=== PATIENT | female | born 1960 | race Caucasian/White ===

== ENCOUNTER 2016-08-03 11:36 | Emergency (ER) | payer OTHER ==
[2016-08-03 11:50] VITALS: BP 139/70
--- NOTE | 2016-08-03 12:33 | UC ---
FLU HPI - HPI Summary HPI Summary: ONSET OF SUBJECTIVE FEVER, CHILLS, BODY ACHES, SALVADOR, COUGH AND CONGESTION LAST NIGHT. DID NOT GET A FLU SHOT THIS SEASON. LAST DOSE IBUPROFEN 11AM (90 MIN AGO) . - History of Current Complaint Chief Complaint: UCRespiratory Stated Complaint: FEVER Time Seen by Provider: 08/03/16 12:26 Hx Obtained From: Patient Onset/Duration: Gradual Onset, Lasting Hours, Still Present Severity Currently: Moderate Severity Initially: Moderate Pain Intensity: 0 Pain Scale Used: 0-10 Numeric Associated Signs & Symptoms: Positive: Fever, Myalgia, Cough, Sore Throat, Nasal Congestion, Headache - Allergy/Home Medications Allergies/Adverse Reactions: Allergies Allergy/AdvReac Type Severity Reaction Status Date / Time Penicillins Allergy Severe Rash Verified 08/03/16 11:50 Hydromorphone [From Dilaudid] AdvReac Intermediate See Comment Verified 11:50 Home Medications: Home Medications Albuterol Sulfate [Proventil Hfa] 108 mcg IN 08/03/16 [History] Alendronate Sodium [Fosamax-] 70 mg PO WEEKLY 08/03/16 [History Confirmed ] Bupropion HCl [Wellbutrin Sr] 200 mg PO 08/03/16 [History] Dexlansoprazole (NF) [Dexilant (NF)] 60 mg PO DAILY 08/03/16 [History Confirmed 08/03/16] Fluticasone-Salmeterol 100-50* [Advair Diskus 100-50*] 1 puff INH BID 08/03/16 [ History Confirmed 08/03/16] Hydroxychloroquine TAB* [Plaquenil TAB*] 200 mg PO DAILY 08/03/16 [History Confirmed 08/03/16] Levothyroxine Sodium [Synthroid] 25 mcg PO 08/03/16 [History] Lisinopril [Zestril 10 MG-] 10 mg PO DAILY 08/03/16 [History Confirmed 08/03/16] Nabumetone TAB* [Relafen TAB*] 500 mg PO BID 08/03/16 [History Confirmed ] Rosuvastatin Calcium 10 mg PO 08/03/16 [History] Sertraline* [Zoloft*] 100 mg PO DAILY 08/03/16 [History Confirmed 08/03/16] metFORMIN* [Glucophage*] 08/03/16 [History] metFORMIN* [Glucophage*] 500 mg PO BID 08/03/16 [History Confirmed 08/03/16] predniSONE TAB* [Deltasone TAB*] 5 mg PO DAILY 08/03/16 [History Confirmed 08/03] PMH/Surg Hx/FS Hx/Imm Hx Endocrine History Of: Reports: Diabetes - type 2, Thyroid Disease, Hypothyroidism, Dyslipidemia Cardiovascular History Of: Reports: Hypertension Denies: Pacemaker/ICD Respiratory History Of: Reports: Asthma - USES INHALER; allergy related GI/ History Of: Denies: Renal Disease Psychological History Of: Reports: Depression - Surgical History Surgical History: Yes Surgery Procedure, Year, and Place: RIGHT FOOT SURGERY 2007. HYSTERECTOMY 1997 , GALLBLADDER REMOVED 1995. BILATERAL SHOULDER ROTATOR CUFF REPAIR. LEFT KNEE REPLACEMENT 2004 - Family History Known Family History: Positive: Hypertension, Other - CHOLESTEROL - Social History Alcohol Use: Rare Substance Use Type: None Smoking Status (MU): Never Smoked Tobacco Review of Systems Constitutional: Fever, Chills, Fatigue ENT: Sore Throat, Nasal Discharge Respiratory: Cough Cardiovascular: Negative Gastrointestinal: Negative Musculoskeletal: Myalgia Neurological: Headache All Other Systems Reviewed And Are Negative: Yes Physical Exam Triage Information Reviewed: Yes Appearance: No Pain Distress, Well-Nourished, Ill-Appearing - MILDLY ILL APPEARING Vital Signs: Initial Vital Signs Temp 97.2 F 08/03/16 11:46 Pulse 114 08/03/16 11:46 Resp 20 08/03/16 11:46 BP 139/70 08/03/16 11:46 Pulse Ox 96 08/03/16 11:46 Vital Signs Reviewed: Yes Eyes: Positive: Conjunctiva Clear ENT: Positive: Hearing grossly normal, Pharynx normal, TMs normal Neck: Positive: Supple, Nontender, No Lymphadenopathy Respiratory Exam: Normal Cardiovascular: Positive: Tachycardia Abdomen Description: Positive: Soft Musculoskeletal: Positive: No Edema Neurological: Positive: Alert Psychological: Positive: Age Appropriate Behavior Skin: Negative: rashes Diagnostics - Laboratory Diagnostic Studies Completed/Ordered: RAPID FLU POSITIVE - FLU A Flu Course/Dx - Differential Dx/Diagnosis Provider Diagnoses: INFLUENZA A Discharge - Discharge Plan Condition: Stable Disposition: HOME Prescriptions: Oseltamivir Phosphate [Tamiflu] 75 mg PO BID #10 cap guaiFENesin/CODIEN 100MG-10MG* [Robitussin AC 100Mg-10Mg*] 5 - 10 ml PO Q6H PRN #150 ml MDD 40 ML PRN Reason: Cough Patient Education Materials: Influenza (ED) Referrals: No Primary Care Phys,NOPCP [Primary Care Provider] - Additional Instructions: SWAB POSITIVE FLU A. TAMIFLU TWICE DAILY X 5 DAYS. REST, HYDRATE, OTC MEDS NEEDED FOR ACHES AND FEVER. SEEK FOLLOW-UP HERE OR WITH YOUR PCP BACK HOME IN [place] IF NOT IMPROVING EXPECTED.
== END 2016-08-03 12:53 | disposition home or self-care (01) ==
LOC: UCEAST 11:36
DX: J09.X2 Influenza due to identified novel influenza A virus with other respiratory manifestations (principal); E11.9 Type 2 diabetes mellitus without complications; Z79.84 Long term (current) use of oral hypoglycemic drugs; I10 Essential (primary) hypertension; Z88.5 Allergy status to narcotic agent; Z88.0 Allergy status to penicillin; E03.9 Hypothyroidism, unspecified; Z90.49 Acquired absence of other specified parts of digestive tract; Z96.652 Presence of left artificial knee joint
CPT/HCPCS: 87502; 99212; G0463